=== PATIENT | female | born 1990 | race African-American/Black ===

== ENCOUNTER 2020-07-14 09:00 | Emergency (ER) | payer OTHER, MEDICAID ==
[~2020-07-14] VITALS: Ht 160 cm; Wt 63.5 kg
[2020-07-14 09:00] VITALS: BP_SYST 115
[2020-07-14] MEDS ORDERED: ACETAMINOPHEN 500 MG TABLET PO ONE (09:45)
[2020-07-14 09:52] LABS: BASOPHILS % (AUTO) 0.2 % (0.0-2.0); EOSINOPHILS # (AUTO) 0.2 K/uL (0.0-0.4); EOSINOPHILS % (AUTO) 1.5 % (0.0-4.0); HEMATOCRIT 28.8 % (36-48); HEMOGLOBIN 9.8 g/dL (12.0-16.0); LYMPHOCYTES # (AUTO) 2.3 K/uL (1.0-5.5); LYMPHOCYTES % (AUTO) 16.4 % (20.5-51.5); MEAN CORPUSCULAR HEMOGLOBIN 33 pg (27-31); MEAN CORPUSCULAR HGB CONC 34 % (32-36); MEAN CORPUSCULAR VOLUME 98 fL (79.0-98.0); MONOCYTES # (AUTO) 0.8 K/uL (0.0-1.0); MONOCYTES % (AUTO) 5.4 % (1.7-9.3); NEUTROPHILS # (AUTO) 10.8 K/uL (1.8-7.7); NEUTROPHILS % (AUTO) 76.5 % (40.0-70.0); PLATELET COUNT (AUTO) 216 K/uL (130-430); RED BLOOD CELL COUNT(AUTO) 2.95 MIL/uL (4.2-6.2); RED CELL DISTRIBUTION WIDTH 14.3 % (9.0-15.0); WHITE BLOOD COUNT (AUTO) 14.1 K/uL (4.8-10.8)
[2020-07-14 10:10] LABS: CALCIUM 8.4 mg/dL (8.4-11.0); CREATININE 0.37 mg/dL (0.55-1.30); POTASSIUM 3.4 mmol/L (3.5-5.1)
[2020-07-14 10:39] LABS: ALBUMIN 3.1 g/dL (3.4-4.8); TOTAL BILIRUBIN 0.2 mg/dL (0.0-1.0)
[2020-07-14] MEDS ORDERED: ACETAMINOPHEN 500 MG TABLET ONE (11:46)
[2020-07-14 11:50] VITALS: BP_SYST 119
== END 2020-07-14 11:51 | disposition home or self-care (01) ==
LOC: SED 09:00
DX: O26.892 Other specified pregnancy related conditions, second trimester (principal); R10.30 Lower abdominal pain, unspecified; Z3A.19 19 weeks gestation of pregnancy
CPT/HCPCS: 36415; 76700-TC; 76805-TC; 80053; 81002; 81025; 83690-TC; 84702-TC; 85025; 86901; 99284

== ENCOUNTER 2020-12-24 22:04 | Emergency (ER) | payer OTHER, MEDICAID ==
[~2020-12-24] VITALS: Ht 160 cm; Wt 72.6 kg
[2020-12-24 22:07] VITALS: BP_SYST 125
[2020-12-24] MEDS ORDERED: NACL 0.9% 1,000 ML IV ONE (22:30)
[2020-12-24 22:38] LABS: BASOPHILS # (AUTO) 0.1 K/uL (0.0-0.2); BASOPHILS % (AUTO) 0.5 % (0.0-2.0); EOSINOPHILS # (AUTO) 0.3 K/uL (0.0-0.4); EOSINOPHILS % (AUTO) 3.1 % (0.0-4.0); HEMATOCRIT 39.2 % (36-48); LYMPHOCYTES # (AUTO) 3.8 K/uL (1.0-5.5); LYMPHOCYTES % (AUTO) 35.2 % (20.5-51.5); MEAN CORPUSCULAR HEMOGLOBIN 32 pg (27-31); MEAN CORPUSCULAR HGB CONC 33 % (32-36); MEAN CORPUSCULAR VOLUME 97 fL (79.0-98.0); MONOCYTES # (AUTO) 0.5 K/uL (0.0-1.0); MONOCYTES % (AUTO) 5.1 % (1.7-9.3); NEUTROPHILS % (AUTO) 56.1 % (40.0-70.0); PLATELET COUNT (AUTO) 273 K/uL (130-430); RED BLOOD CELL COUNT(AUTO) 4.03 MIL/uL (4.2-6.2); RED CELL DISTRIBUTION WIDTH 12.8 % (9.0-15.0); WHITE BLOOD COUNT (AUTO) 10.7 K/uL (4.8-10.8)
[2020-12-24] MEDS ORDERED: fentaNYL CITRATE/PF 100 MCG/2 ML AMP IVP ONE ×2 (22:45→23:45)
[2020-12-24 22:57] LABS: CALCIUM 9.4 mg/dL (8.4-11.0); CREATININE 0.72 mg/dL (0.55-1.30); POTASSIUM 4.1 mmol/L (3.5-5.1)
[2020-12-24 22:59] LABS: INR 0.9 (0.8-1.2); PROTHROMBIN TIME 9.4 SECS (9.5-12.5)
[2020-12-24 23:03] LABS: ALBUMIN 3.4 g/dL (3.4-4.8); TOTAL BILIRUBIN 0.3 mg/dL (0.0-1.0)
[2020-12-25] MEDS ORDERED: ACET-73 PO (01:07)
[2020-12-25 01:19] VITALS: BP_SYST 100
== END 2020-12-25 01:19 | disposition home or self-care (01) ==
LOC: SED 22:04
DX: N83.201 Unspecified ovarian cyst, right side (principal); K59.00 Constipation, unspecified; Z88.5 Allergy status to narcotic agent
CPT/HCPCS: 36415; 74176; 76376; 80053; 82150; 83690; 84702; 85025; 85610; 96361; 96374; 96375; 99284; J3010; J7030